=== PATIENT | male | born 1965 | race Caucasian/White ===

== ENCOUNTER 2018-01-06 14:04 | Emergency (ER) | payer OTHER ==
[~2018-01-06] VITALS: Ht 167.6 cm; Wt 108.9 kg
[~2018-01-06 14:04] MED LIST: ACETAMINOPHEN-1 EAC1 PO; BACTRIM DS TAB1 EACH PO; CIPRO250 MG PO; CIPROFLOXACIN500 M1 PO; CLEOCIN HCL300 MG PO; GABAPENTIN; GLUCOPHAGE1000 MG PO; GLUCOTROL5 MG PO; GRALISE1 EACH; HYDROCODONE-AP1 EAC6 PO; KEFLEX500 MG PO; LISINOPRIL; LISINOPRIL-HCT1 EACH; LISINOPRIL2.5 MG; MEROPENEM 1 GM V1 GM IV; METFORMIN 500500 MG PO; METFORMIN HCL500 MG PO; METFORMIN PO; MINOCIN100 MG PO; NEURONTIN300 MG PO; NEURONTIN600 MG PO; NOHOMEMEDICATIONS; NORCO 10-325 T1 EACH PO; NORCO 5-325 TA1 EAC1 PO; NORCO 5-325 TA1 EACH PO; Neurontin; PERCOCET 10-321 EACH PO; PRINIVIL; PRINIVIL10 MG PO; ULTRAM 50MG TAB50 MG PO; VANCOMYCIN1.25 GM/15 IV; ZESTORETIC; ZESTORETIC 20-1 EAC3 PO; ZOCOR; ZOCOR20 MG PO; ZOCOR40 MG PO
[2018-01-06 14:16] VITALS: BP 147/102
[2018-01-06] MEDS ORDERED: NORCO 5-325 TA1 EACH PO (14:38)
[2018-01-06] MEDS ORDERED: CLEOCIN HCL300 MG PO (14:38)
== END 2018-01-06 14:45 | disposition home or self-care (01) ==
LOC: M.ERS 14:04
DX: L03.032 Cellulitis of left toe (principal); I10 Essential (primary) hypertension; E11.9 Type 2 diabetes mellitus without complications; Z96.643 Presence of artificial hip joint, bilateral; E78.00 Pure hypercholesterolemia, unspecified; Z88.2 Allergy status to sulfonamides; Z88.8 Allergy status to other drugs, medicaments and biological substances

== ENCOUNTER 2021-02-13 21:26 | Inpatient (IN) | payer OTHER ==
[~2021-02-13] VITALS: Ht 167.6 cm; Wt 108.9 kg
[2021-02-13 21:40] VITALS: BP 185/88
[2021-02-13 22:16] LABS: ABSOLUTE BASOPHILS 0.1 thou/uL (0.0-0.2); ABSOLUTE EOSINOPHILS 0.1 thou/uL (0.0-0.7); ABSOLUTE LYMPHOCYTES 2.2 thou/uL (0.8-5.3); ABSOLUTE MONOCYTES 0.8 thou/uL (0.0-1.2); ABSOLUTE NEUTROPHILS 7.9 thou/uL (1.6-8.1); BASOPHILS 0.9 %; EOSINOPHILS 0.7 %; HEMATOCRIT 39.6 % (42.0-52.0); HEMOGLOBIN 14.2 gm/dL (14.0-18.0); LYMPHOCYTES 19.7 %; MCH 33.8 pg (26.0-34.0); MCHC 35.7 g/dL (28.0-37.0); MCV 94.6 fL (80.0-100.0); MONOCYTES 7.3 %; MPV 8.9 fl. (7.2-11.1); NUCLEATED RBCS 0 /100WBC; PLATELET COUNT* 193 thou/uL (150-400); POLYS 71.4 %; RBC 4.19 mil/uL (4.50-6.00); RDW-CV 13.2 % (10.5-14.5); WBC 11.1 thou/uL (4.0-11.0)
[2021-02-13 22:19] LABS: CALCIUM 8.5 mg/dL (8.5-10.1); CREATININE 1.2 mg/dL (0.6-1.3); POTASSIUM 3.6 mmol/L (3.5-5.1)
[2021-02-13 22:24] LABS: ALBUMIN 2.8 g/dL (3.4-5.0); MAGNESIUM 1.7 mg/dL (1.8-2.4); TOTAL BILIRUBIN 0.7 mg/dL (<0.1-1.0); TOTAL PROTEIN 7.5 g/dL (6.4-8.2)
[2021-02-14 00:37] LABS: URINE BILIRUBIN NEGATIVE (Negative); URINE BLOOD 1+ (Negative); URINE CLARITY CLEAR; URINE COLOR YELLOW; URINE GLUCOSE-RANDOM 3+ (Negative); URINE KETONES NEGATIVE (Negative); URINE LEUKOCYTES-REFLEX NEGATIVE (Negative); URINE NITRITE-REFLEX NEGATIVE (Negative); URINE PROTEIN 3+ (Negative); URINE SPECIFIC GRAVITY 1.015 (1.005-1.030); URINE UROBILINOGEN 0.2 E.U./dl (0.2-1.0)
[2021-02-14 00:48] LABS: SQUAMOUS 0-3 Few /LPF (0-3); URINE WBC-REFLEX 0-5 Rare /HPF (0-5)
[2021-02-14 00:49] LABS: CASTS None Seen /LPF (None Seen); CRYSTALS None Seen /LPF (None Seen); MUCUS 0-3 Light strn/LPF (None Seen); URINE RBC 3-10 Few /HPF (0-2)
[2021-02-14 01:55] VITALS: BP 133/77
[2021-02-14 02:30] VITALS: BP 167/85
[2021-02-14 08:00] VITALS: BP 191/97
[2021-02-14 10:37] VITALS: BP 186/94
[2021-02-14 16:00] VITALS: BP 134/76
[2021-02-14 20:00] VITALS: BP 147/78
[2021-02-15] VITALS: BP 125/74
[2021-02-15 04:00] LABS: CALCIUM 7.8 mg/dL (8.5-10.1); CREATININE 1.4 mg/dL (0.6-1.3); POTASSIUM 3.9 mmol/L (3.5-5.1)
[2021-02-15 04:03] LABS: ABSOLUTE BASOPHILS 0.1 thou/uL (0.0-0.2); ABSOLUTE EOSINOPHILS 0.2 thou/uL (0.0-0.7); ABSOLUTE LYMPHOCYTES 2.3 thou/uL (0.8-5.3); ABSOLUTE MONOCYTES 0.7 thou/uL (0.0-1.2); BASOPHILS 0.6 %; EOSINOPHILS 2.1 %; HEMATOCRIT 35.8 % (42.0-52.0); HEMOGLOBIN 12.8 gm/dL (14.0-18.0); MCH 34.2 pg (26.0-34.0); MCHC 35.7 g/dL (28.0-37.0); MCV 95.7 fL (80.0-100.0); MONOCYTES 8.7 %; MPV 8.7 fl. (7.2-11.1); NUCLEATED RBCS 0 /100WBC; PLATELET COUNT* 177 thou/uL (150-400); POLYS 60.6 %; RBC 3.74 mil/uL (4.50-6.00); RDW-CV 12.9 % (10.5-14.5); WBC 8.3 thou/uL (4.0-11.0)
[2021-02-15 07:05] VITALS: BP 148/81
[2021-02-15 15:35] VITALS: BP 143/83
[2021-02-15 20:30] VITALS: BP 175/95
[2021-02-16 06:16] LABS: ABSOLUTE BASOPHILS 0.1 thou/uL (0.0-0.2); ABSOLUTE EOSINOPHILS 0.2 thou/uL (0.0-0.7); ABSOLUTE LYMPHOCYTES 1.7 thou/uL (0.8-5.3); ABSOLUTE MONOCYTES 0.6 thou/uL (0.0-1.2); ABSOLUTE NEUTROPHILS 4.1 thou/uL (1.6-8.1); BASOPHILS 0.8 %; EOSINOPHILS 2.9 %; HEMATOCRIT 34.7 % (42.0-52.0); HEMOGLOBIN 12.5 gm/dL (14.0-18.0); LYMPHOCYTES 25.6 %; MCH 34.3 pg (26.0-34.0); MCHC 35.9 g/dL (28.0-37.0); MCV 95.4 fL (80.0-100.0); MPV 8.9 fl. (7.2-11.1); NUCLEATED RBCS 0 /100WBC; PLATELET COUNT* 171 thou/uL (150-400); POLYS 61.7 %; RBC 3.64 mil/uL (4.50-6.00); RDW-CV 13.1 % (10.5-14.5); WBC 6.6 thou/uL (4.0-11.0)
[2021-02-16 06:26] LABS: CALCIUM 7.8 mg/dL (8.5-10.1); CREATININE 1.5 mg/dL (0.6-1.3); POTASSIUM 3.7 mmol/L (3.5-5.1)
[2021-02-16 08:30] VITALS: BP 160/92
[2021-02-16 16:10] VITALS: BP 154/83
[2021-02-16 20:00] VITALS: BP 189/98
[2021-02-17 00:02] VITALS: BP 131/72
[2021-02-17 05:00] VITALS: BP 134/83
[2021-02-17 07:50] VITALS: BP 146/84
[2021-02-17] MEDS ORDERED: HYDROCODON-ACE1 EAC7 PO (12:32)
[2021-02-17] MEDS ORDERED: DOXYCYCLINE 10100 MG PO (13:25)
[2021-02-17] MEDS ORDERED: AUGMENTIN 875-1 EACH PO (13:25)
[2021-02-17] MEDS ORDERED: LISINOPRIL10 MG PO (13:26)
[2021-02-17 13:30] VITALS: BP 146/84
[2021-02-17 16:12] VITALS: BP 146/84
--- NOTE | 2021-02-18 14:27 | EKG ---
[place] [address] ELECTROCARDIOGRAM REPORT Name: JENNIFER MAGANA Room: [address] DIS IN M.R.#: [id number] Admission: 02/14/21 Attend Phys: Anastasia Sr Discharge: 02/17/21 Date of : 65 Date of Service: 02/16/21 1047 Report #: [id number] THIS REPORT FOR: //name// [facility] Test Date: 2021-02-16 Test Time: 10:47:36 Pat Name: JENNIFER MAGANA Department: Room: [address] Gender: M Issuing Operator: - : 1965 Requested By: Arvind Nick Order Number: [id number] Magaly MD: Agustín Brewer Measurements Intervals [place] Rate: 69 P: 31 DE: 131 QRS: -5 QRSD: 95 T: 0 QT: 400 QTc: 429 Interpretive Statements Sinus rhythm Atrial premature complex RSR' in V1 or V2, right VCD Compared to ECG 06/17/2014 16:48:06 Atrial premature complex(es) now present RSR' in V1 or V2 now present Electronically Signed On 02-18-2021 14:27:17 CDT by Agustín Brewer [email or web address] <ELECTRONICALLY SIGNED> By: Agustín Brewer MD, [facility] 02/18/21 1427 1047 1047 Augstín Brewer MD, [facility] /EPI
== END 2021-02-17 15:45 | disposition home or self-care (01) | DRG 854 ==
LOC: M.ERS 21:26 → M.TBA-ER 02-14 00:36 → M.ERS 02-14 00:36 → M.3W 02-14 00:36
PROVIDERS: Internal Medicine; Personal Emergency Response Attendant; ADMIT Internal Medicine; ATTEND Internal Medicine
PROC: 0Y6N0ZD Detachment at Left Foot, Partial 4th Ray, Open Approach (ICD-10-PCS; principal; 2021-02-16)
DX: A41.9 Sepsis, unspecified organism (principal); L03.116 Cellulitis of left lower limb; L97.525 Non-pressure chronic ulcer of other part of left foot with muscle involvement without evidence of necrosis; E87.1 Hypo-osmolality and hyponatremia; E11.52 Type 2 diabetes mellitus with diabetic peripheral angiopathy with gangrene; I96 Gangrene, not elsewhere classified; M86.8X7 Other osteomyelitis, ankle and foot; I10 Essential (primary) hypertension; E78.00 Pure hypercholesterolemia, unspecified; E11.621 Type 2 diabetes mellitus with foot ulcer; E11.65 Type 2 diabetes mellitus with hyperglycemia; E78.5 Hyperlipidemia, unspecified; E11.69 Type 2 diabetes mellitus with other specified complication; Z20.822 Contact with and (suspected) exposure to COVID-19; Z88.8 Allergy status to other drugs, medicaments and biological substances; Z88.2 Allergy status to sulfonamides; Z87.81 Personal history of (healed) traumatic fracture; Z79.899 Other long term (current) drug therapy

== ENCOUNTER → 2021-02-21 | Outpatient (CLI) | payer OTHER ==
[~2021-02-21] MED LIST changes: +AUGMENTIN 875-1 EACH PO; +DOXYCYCLINE 10100 MG PO; +HYDROCODON-ACE1 EAC7 PO; +LISINOPRIL10 MG PO
== END ==
LOC: M.WC 12:55
PROVIDERS: ATTEND Podiatrist Foot & Ankle Surgery
DX: T87.89 Other complications of amputation stump (principal); E11.621 Type 2 diabetes mellitus with foot ulcer; L97.521 Non-pressure chronic ulcer of other part of left foot limited to breakdown of skin; E11.42 Type 2 diabetes mellitus with diabetic polyneuropathy; Z87.891 Personal history of nicotine dependence; Z96.643 Presence of artificial hip joint, bilateral; Z79.84 Long term (current) use of oral hypoglycemic drugs; Z79.899 Other long term (current) drug therapy; Y83.5 Amputation of limb(s) as the cause of abnormal reaction of the patient, or of later complication, without mention of misadventure at the time of the procedure

== ENCOUNTER → 2021-02-28 | Outpatient (CLI) | payer OTHER | LOC: M.WC 12:55 | PROVIDERS: ATTEND Podiatrist Foot & Ankle Surgery | DX: T87.89 Other complications of amputation stump (principal); E11.621 Type 2 diabetes mellitus with foot ulcer; L97.521 Non-pressure chronic ulcer of other part of left foot limited to breakdown of skin; E11.42 Type 2 diabetes mellitus with diabetic polyneuropathy; Z87.891 Personal history of nicotine dependence; Z96.643 Presence of artificial hip joint, bilateral; Z79.84 Long term (current) use of oral hypoglycemic drugs; Z09 Encounter for follow-up examination after completed treatment for conditions other than malignant neoplasm; Y83.5 Amputation of limb(s) as the cause of abnormal reaction of the patient, or of later complication, without mention of misadventure at the time of the procedure ==

== ENCOUNTER → 2021-03-07 | Outpatient (CLI) | payer OTHER | LOC: M.WC 12:54 | PROVIDERS: ATTEND Podiatrist Foot & Ankle Surgery | DX: T87.89 Other complications of amputation stump (principal); E11.621 Type 2 diabetes mellitus with foot ulcer; L97.521 Non-pressure chronic ulcer of other part of left foot limited to breakdown of skin; E11.42 Type 2 diabetes mellitus with diabetic polyneuropathy; Z87.891 Personal history of nicotine dependence; Z96.643 Presence of artificial hip joint, bilateral; Z79.84 Long term (current) use of oral hypoglycemic drugs; Z09 Encounter for follow-up examination after completed treatment for conditions other than malignant neoplasm; Y83.5 Amputation of limb(s) as the cause of abnormal reaction of the patient, or of later complication, without mention of misadventure at the time of the procedure ==